=== PATIENT | female | born 1985 | race Caucasian/White ===

== ENCOUNTER → 2017-08-05 | Outpatient (CLI) | payer BC ==
[~2017-08-05] MED LIST: BCP PO; HMLI SC; INSDGI SC
[2017-08-05 12:25] LABS: ALBUMIN 3.4 gm/dl (3.4-5.0); ALT/SGPT 26 U/L (12-78); AST/SGOT 14 U/L (15-37); BLOOD UREA NITROGEN 12 mg/dl (7-18); CALCIUM 8.5 mg/dl (8.5-10.1); CARBON DIOXIDE 23 mmol/L (21-32); CREATININE 0.92 mg/dl (0.60-1.20); GLUCOSE 305 mg/dl (70-99); SODIUM 134 mmol/L (136-145)
[2017-08-05 12:27] LABS: CHOLESTEROL 123 mg/dl (0-200); TOTAL PROTEIN 7.3 gm/dl (6.4-8.2)
[2017-08-05 12:33] LABS: HEMOGLOBIN A1C 8.3 % (4.5-5.6)
[2017-08-05 12:36] LABS: ALKALINE PHOSPHATASE 76 U/L (45-117); LDL CHOLESTEROL CALCULATED 45 mg/dl
[2017-08-05 14:33] LABS: CREATININE RANDOM URINE 32.9 mg/dl
== END | disposition home or self-care (01) ==
LOC: C.LAB1850 10:45
PROVIDERS: ATTEND Internal Medicine Endocrinology, Diabetes & Metabolism
DX: E78.5 Hyperlipidemia, unspecified (principal); E55.9 Vitamin D deficiency, unspecified; E10.9 Type 1 diabetes mellitus without complications

== ENCOUNTER 2023-12-19 21:34 | Inpatient (IN) ==
[2023-12-19 22:15] LABS: Basophils # (auto) 0.06 K/uL (0.00-0.20); Basophils % (auto) 0.3 %; Eosinophils # (auto) 0.05 K/uL (0.00-0.50); Eosinophils % (auto) 0.3 %; Hemoglobin 10.7 g/dl (12.0-16.0); Immature Granulocytes # (auto) 0.27 K/uL (0.01-0.20); Immature Granulocytes % (auto) 1.6 %; Lymphocytes # (auto) 1.31 K/uL (1.20-3.40); Lymphocytes % (auto) 7.6 %; Mean Corpuscular Hgb Conc 32.4 g/dL (32.0-36.0); Mean Corpuscular Volume 83.3 fL (80.0-100.0); Monocytes # (auto) 1.21 K/uL (0.11-0.59); Neutrophils # (auto) 14.44 K/uL (1.40-6.50); Neutrophils % (auto) 83.2 %; Platelet Count 236 K/uL (130-400); RDW Coefficient of Variation 14.9 % (11.5-14.5); Red Blood Count 3.96 M/uL (4.20-5.40); White Blood Count 17.34 K/ul (4.8-10.8)
[2023-12-19 22:32] LABS: Albumin Globulin Ratio 0.8 (0.9-2); Calcium 8.6 mg/dl (8.6-10.3); Creatinine Clr Calc Pharmacy 119.2 ml/min; Est GFR (African American) 113.5 ml/min; Est GFR (Non-African American) 97.9 ml/min; Globulin 3.6 gm/dl (2.5-4.0); Potassium 3.2 mmol/L (3.5-5.1); Total Protein 6.6 gm/dl (6.0-8.3)
[2023-12-19 23:37] LABS: Adenovirus PCR Not Detected (NotDetected); Bordetella parapertussis PCR Not Detected (NotDetected); Bordetella pertussis PCR Not Detected (NotDetected); Chlamydia pneumoniae PCR Not Detected (NotDetected); Coronavirus 229E PCR Not Detected (NotDetected); Coronavirus CoV-2 (COVID19)PCR Not Detected (NotDetected); Coronavirus HKU1 PCR Not Detected (NotDetected); Coronavirus NL63 PCR Not Detected (NotDetected); Coronavirus OC43PCR Not Detected (NotDetected); Human Metapneumovirus PCR Not Detected (NotDetected); Influenza A PCR Not Detected (NotDetected); Influenza B PCR Not Detected (NotDetected); Mycoplasma pneumoniae PCR Not Detected (NotDetected); Parainfluenza Virus 1 PCR Not Detected (NotDetected); Parainfluenza Virus 2 PCR Not Detected (NotDetected); Parainfluenza Virus 3 PCR Not Detected (NotDetected); Parainfluenza Virus 4 PCR Not Detected (NotDetected); Respiratory Syncytial VirusPCR Not Detected (NotDetected); Rhinovirus/Enterovirus PCR Not Detected (NotDetected)
[2023-12-20] MEDS: ONDANSETRON 4 MG OD TAB PO STA (00:30)
[2023-12-20] MEDS: SODIUM CHLORIDE 0.9% 1,000 ML IV ONE (00:30)
[2023-12-20] MEDS: AMOXICILLIN/CLAVULANATE 875 MG TAB PO ONE (00:44)
[2023-12-20 01:04] LABS: Pregnancy Test, Urine Negative (Negative)
[2023-12-20 01:07] LABS: Appearance Urine Turbid (Clear); Bacteria Urine Automated 4+ (None Seen); Bilirubin Urine 1+ (Negative); Blood Urine 3+ (Negative); Color Urine Dark Yellow; Glucose Urine UA 2+ (Negative); Ketones Urine Trace (Negative); Leukocyte Esterase Urine 2+ (Negative); Nitrite Urine Positive (Negative); Protein Urine 2+ (Negative); RBC Urine Automated >20 /hpf (0-2); Specific Gravity Urine 1.017 (1.000-1.030); Urobilinogen Urine Positive (Negative); WBC Urine Automated >50 /hpf (0-5)
--- NOTE | 2023-12-20 02:53 | Emergency Department Note ---
ED Provider Note History of Present Illness Chief Complaint: Flu Like Symptoms Stated Complaint: FEVER, SOB, COUGH, CHILLS/SHAKES, HEADACHE Time Seen by Provider: 12/19/23 22:48 38-year-old female who presents the emergency department with complaint of fever, shortness of breath, nonproductive cough, chills and headache. The patient reports that she has been sick with upper respiratory symptoms for the past 3 days. The patient reports that she also was treated a month ago for pyelonephritis. She reports completing all of her previous antibiotics, with increasing urinary symptoms as well. Upon further questioning, the patient reports that she has not felt well now for over a week. She was seen at the [facility] in [place] when her symptoms developed, and was told that she did not have a urinary tract infection. The patient reports nausea and vomiting. The patient rates her overall discomfort a 3 out of 10. Home Medications Medication Instructions Recorded Confirmed Type ascorbic acid (vitamin C) 500 mg 500 mg PO DAILY 01/31/19 12/19/23 History tablet blood sugar diagnostic (ReliOn #10 ea 01/31/19 08/24/23 History Prime Test Strips) cyanocobalamin (vitamin B-12) 500 500 mcg PO DAILY 11/26/20 12/19/23 History mcg tablet pen needle, diabetic 31 gauge x #400 ea 11/26/20 08/24/23 Rx 3/16" (BD Ultra-Fine Mini Pen Needle) atorvastatin 40 mg tablet 40 mg PO HS #30 tabs 08/29/23 12/19/23 Rx insulin glargine 100 unit/mL (3 40 unit (0.4 mL) subcut QPM #36 mL 09/07/23 12/19/23 Rx mL) subcutaneous pen (Lantus Solostar U-100 Insulin) blood-glucose sensor (Dexcom G6 #3 ea 09/16/23 09/16/23 Rx Sensor device) blood-glucose transmitter (Dexcom #1 ea 09/16/23 09/16/23 Rx G6 Transmitter device) insulin pump cart,automated,BT #15 ea 09/16/23 09/16/23 Rx (Omnipod 5 G6 Pods (Gen 5) subcutaneous cartridge) insulin pump cartridge,automated #1 ea 09/16/23 09/16/23 Rx dose,BT with controller subcutaneous (Omnipod 5 G6 Intro Kit (Gen 5) subcutaneous cartridge with controller) insulin lispro 100 unit/mL 0 - 50 unit subcut TID 11/17/23 12/19/23 History subcutaneous pen (Humalog KwikPen (U-100) Insulin) cholecalciferol (vitamin D3) 125 125 mcg PO DAILY 12/19/23 12/19/23 History mcg (5,000 unit) tablet (Vitamin D3) amoxicillin 875 mg-potassium 1 tab PO BID #14 tabs 12/20/23 Rx clavulanate 125 mg tablet azithromycin 250 mg tablet See Rx Instructions PO .COMPLEX #6 12/20/23 Rx (Zithromax Z-Enzo) tabs Allergies Allergy/AdvReac Type Severity Reaction Status Date / Time No Known Allergies Allergy Verified 12/19/23 23:04 Past Med/Surg History Problem List (Updated 12/20/23 @ 02:53 by Scout Doll) Pyelonephritis (Acute) Acute hypokalemia (Acute) Elevated LFTs (Acute) Acute hyponatremia (Acute) Nonproductive cough (Acute) Fever (Acute) Elevated white blood cell count (Acute) Pneumonia (Acute) Diabetes type 1, uncontrolled (Chronic) Background diabetic retinopathy associated with type 1 diabetes mellitus (Acute) Diabetes type 1, controlled Medical History (Updated 12/20/23 @ 02:53 by Scout Doll) Pyelonephritis Type 1 diabetes mellitus Dyslipidemia Vitamin D deficiency Surgical History (Updated 12/20/23 @ 02:43 by Scout Doll) No significant past surgical history Social History Smoking Status: Current every day smoker Tobacco Type: Cigarettes and E-cigarettes / Vaping Preferred Language: Bulgarian marital status: Current Living Situation: Family current occupation: [employer] Officer How many Children do You have: 2 Feels Safe at Home: Yes Physical Exam Vital Signs Vital Signs - 24 hr 12/19/23 21:37 12/20/23 00:50 Temperature 37.3 C Temperature Source Oral Pulse Rate 113 H Pulse Rate [Apical] 100 H Pulse Rhythm [Apical] Regular Pulse Strength [Apical] Normal Respiratory Rate 20 16 Respiratory Effort / Characteristics Non-Labored Non-Labored Spontaneous Respiratory Depth Normal Normal Respiratory Pattern Regular Regular Blood Pressure 172/88 H Blood Pressure [Right Arm] 123/70 Blood Pressure Mean 116 Blood Pressure Mean [Right Arm] 87 Blood Pressure Position [Right Arm] Lying Pulse Oximetry 92 92 Oxygen Delivery Method Room Air Room Air Sepsis Recent Fever Within 48 Hours Yes Sepsis New/Unexplained Change in Mental Status N/A Sepsis Action Taken by Nursing No Action Required CONSTITUTIONAL: Healthy and well nourished. Patient does not appear toxic, but does appear in notable discomfort. She is diaphoretic. HEENT: No scleral icterus or conjunctival injection. Examination of oropharynx shows dry mucosa. She has mild posterior pharyngeal erythema without tonsillar hypertrophy, exudates or trismus. NECK: Full active range of motion without discomfort. No JVD or carotid bruits. No nuchal rigidity. LYMPHATICS: No cervical chain adenopathy. RESPIRATORY: Clear to auscultation bilaterally with no wheezing, crackles, rhonchi or stridor. CARDIOVASCULAR: Regular rate and rhythm with no murmurs, rubs or gallops. GASTROINTESTINAL: Bowel sounds present in all quadrants. Patient has mild generalized abdominal tenderness to palpation. Positive CVA tenderness. Negative McBurney's point tenderness, right few side, Rovsing sign and heeltap. MUSCULOSKELETAL: Full range of motion of all joints without discomfort. INTEGUMENTARY: No rash or other significant dermatologic conditions noted. HEMATOLOGIC: No ecchymosis or petechiae. PSYCHIATRIC: Positive affect. NEUROLOGIC: No focal neurologic deficits noted. Course Course Patient history and physical exam were performed. Nurses notes were reviewed. Vital signs were reviewed from triage showing a mild tachycardia and elevated blood pressure. The patient was not febrile in triage. Of note, the patient did arrive to the emergency department during time of high volume, acuity and prolonged emergency department waiting times. Critical pathway orders were initiated from triage. IV access was established, and labs were drawn. At the time that I evaluated the patient, additional orders were placed for IV hydration, chest x-ray, ECG and urine studies. Review of her labs shows a moderate leukocytosis with a white count of over 17,000, neutrophilic shift and 27% bandemia. CMP shows a mild hyponatremia, hypokalemia and elevated random glucose. Creatinine was normal. AST was also elevated at 50, as well as alkaline phosphatase at 201. Total bilirubin was normal. The patient was unable to provide a urine specimen. A 2 view chest x-ray was ordered, showing evidence for pneumonia. The patient was initially administered Augmentin. The patient was eventually able to provide a urine specimen, with a quick urine dip that did not show evidence for infection. I was initially planning to discharge the patient until urinalysis results came back, showing recurrent infection. I did review prior medical records, showing that the patient was in the emergency department on 11/17/2023 with a diagnosis of pyelonephritis. Urine cultures at that time showed macedo sensitivity, and was discharged on cefdinir antibiotics. The case was further discussed with , ED attending physician, who recommended consulting the hospitalist service, and administering IV Rocephin and Zithromax. The patient was advised of her findings, and has agreed to admission. The case was then discussed with the [facility] hospitalist service (Dr. Coburn). Please see hospitalist dictations for further treatment and final disposition. Administered Medications Discontinued Medications Amoxicillin/Clavulanate Potassium (Amoxicillin/Clavulanate 875 Mg Tab) 1 tab PO NOW ONE; Protocol Stop: 12/20/23 00:28 Last Admin: 12/20/23 00:44 Dose: 1 tab Documented By: INDY Sodium Chloride (Nss) 1,000 mls @ 999 mls/hr IV .Q1H1M ONE Stop: 12/20/23 01:22 Last Infusion: 12/20/23 01:40 Dose: Infused Documented By: Admin: 12/20/23 00:30 Dose: 999 mls/hr Documented By: INDY Ceftriaxone Sodium (Rocephin) 2,000 mg in 50 mls @ 100 mls/hr IV NOW STA Stop: 12/20/23 02:32 Last Admin: 12/20/23 03:08 Dose: Not Given Documented By: DOMI Ioversol (Optiray 320 125ml) 125 ml IV ONCE ONE Stop: 12/20/23 03:01 Last Admin: 12/20/23 03:01 Dose: 118 ml Documented By: KARNE Ondansetron HCl (Ondansetron 4 Mg Od Tab) 4 mg PO NOW STA Stop: 12/20/23 00:27 Last Admin: 12/20/23 00:30 Dose: 4 mg Documented By: INDY Medical Decision Making Medical Records Attestation: I reviewed the patient's medical records. Home Medications was personally reviewed by me Laboratory Data Attestation: I reviewed the patient's lab results. 12/19/23 21:55 07/29/24 21:55 Lab Results 12/19/23 12/19/23 12/20/23 Range/Units 21:52 21:55 00:38 WBC 17.34 H (4.8-10.8) K/ul RBC 3.96 L (4.20-5.40) M/uL Hgb 10.7 L (12.0-16.0) g/dl Hct 33.0 L (37.0-47.0) % MCV 83.3 (80.0-100.0) fL MCH 27.0 (25.0-34.0) pg MCHC 32.4 (32.0-36.0) g/dL RDW Std Deviation 45.0 (36.4-46.3) fL RDW Coeff of Andi 14.9 H (11.5-14.5) % Plt Count 236 (130-400) K/uL MPV 11.0 (9.4-12.4) fL Immature Gran % (Auto) 1.6 % Neut % (Auto) 83.2 % Lymph % (Auto) 7.6 % [place] % (Auto) 7.0 % Eos % (Auto) 0.3 % Baso % (Auto) 0.3 % Neut # (Auto) 14.44 H (1.40-6.50) K/uL Lymph # (Auto) 1.31 (1.20-3.40) K/uL [place] # (Auto) 1.21 H (0.11-0.59) K/uL Eos # (Auto) 0.05 (0.00-0.50) K/uL Baso # (Auto) 0.06 (0.00-0.20) K/uL Immature Gran # (Auto) 0.27 H (0.01-0.20) K/uL Sodium 131 L (136-145) mmol/L Potassium 3.2 L (3.5-5.1) mmol/L Chloride 93 L (98-107) mmol/L Carbon Dioxide 29 (21-32) mmol/L Anion Gap 9 (3-11) BUN 10 (6-23) mg/dl Creatinine 0.77 (0.6-1.2) mg/dl Est Cr Clr Drug Dosing 119.2 ml/min Est GFR ( Amer) 113.5 ml/min Est GFR (Non-Af Amer) 97.9 ml/min BUN/Creatinine Ratio 13.0 (10-20) Glucose 242 H (70-99(Fasting)) mg/dl POC Glucose (70-99) mg/dl Calcium 8.6 (8.6-10.3) mg/dl Magnesium 1.8 (1.7-2.4) mg/dl Total Bilirubin 1.0 (0.2-1.0) mg/dl AST 50 H (13-39) U/L ALT 39 (7-52) U/L Alkaline Phosphatase 201 H (34-104) U/L Total Protein 6.6 (6.0-8.3) gm/dl Albumin 3.0 L (3.4-5.0) gm/dl Globulin 3.6 (2.5-4.0) gm/dl Albumin/Globulin Ratio 0.8 L (0.9-2) Urine Color Dark Yellow Urine Appearance Turbid A (Clear) Urine pH 6.0 (4.5-7.5) Ur Specific [place] 1.017 (1.000-1.030) Urine Protein 2+ H (Negative) Urine Glucose (UA) 2+ H (Negative) Urine Ketones Trace H (Negative) Urine Blood 3+ H (Negative) Urine Nitrite Positive A (Negative) Urine Bilirubin 1+ H (Negative) Urine Urobilinogen Positive H (Negative) Ur Leukocyte Esterase 2+ H (Negative) Urine WBC (Auto) >50 H (0-5) /hpf Urine RBC (Auto) >20 H (0-2) /hpf U Hyaline Cast (Auto) 3-5 H (0-2) /lpf U Epithel Cells (Auto) 6-10 H (0-2) /hpf Urine Bacteria (Auto) 4+ H (None Seen) Urine Test Negative (Negative) POC Ur Test (NEG) Adenovirus (PCR) Not Detected (NotDetected) B. pertussis DNA (PCR) Not Detected (NotDetected) B.parapertussis DNA PCR Not Detected (NotDetected) C. pneumoniae DNA (PCR) Not Detected (NotDetected) Coronavirus OC43 (PCR) Not Detected (NotDetected) Coronavirus HKU1 (PCR) Not Detected (NotDetected) Coronavirus 229E (PCR) Not Detected (NotDetected) SARS-CoV-2 (PCR) Not Detected (NotDetected) Coronavirus NL63 (PCR) Not Detected (NotDetected) Monoscreen Negative (Negative) Human Metapneumovir PCR Not Detected (NotDetected) Influenza Type A (PCR) Not Detected (NotDetected) Influenza Type B (PCR) Not Detected (NotDetected) M. pneumoniae (PCR) Not Detected (NotDetected) Parainfluenza 1 (PCR) Not Detected (NotDetected) Parainfluenza 2 (PCR) Not Detected (NotDetected) Parainfluenza 3 (PCR) Not Detected (NotDetected) Parainfluenza 4 (PCR) Not Detected (NotDetected) RSV (PCR) Not Detected (NotDetected) Entero/Rhino (PCR) Not Detected (NotDetected) 12/20/23 12/20/23 Range/Units 00:40 02:48 WBC (4.8-10.8) K/ul RBC (4.20-5.40) M/uL Hgb (12.0-16.0) g/dl Hct (37.0-47.0) % MCV (80.0-100.0) fL MCH (25.0-34.0) pg MCHC (32.0-36.0) g/dL RDW Std Deviation (36.4-46.3) fL RDW Coeff of Andi (11.5-14.5) % Plt Count (130-400) K/uL MPV (9.4-12.4) fL Immature Gran % (Auto) % Neut % (Auto) % Lymph % (Auto) % [place] % (Auto) % Eos % (Auto) % Baso % (Auto) % Neut # (Auto) (1.40-6.50) K/uL Lymph # (Auto) (1.20-3.40) K/uL [place] # (Auto) (0.11-0.59) K/uL Eos # (Auto) (0.00-0.50) K/uL Baso # (Auto) (0.00-0.20) K/uL Immature Gran # (Auto) (0.01-0.20) K/uL Sodium (136-145) mmol/L Potassium (3.5-5.1) mmol/L Chloride (98-107) mmol/L Carbon Dioxide (21-32) mmol/L Anion Gap (3-11) BUN (6-23) mg/dl Creatinine (0.6-1.2) mg/dl Est Cr Clr Drug Dosing ml/min Est GFR ( Amer) ml/min Est GFR (Non-Af Amer) ml/min BUN/Creatinine Ratio (10-20) Glucose (70-99(Fasting)) mg/dl POC Glucose 249 H (70-99) mg/dl Calcium (8.6-10.3) mg/dl Magnesium (1.7-2.4) mg/dl Total Bilirubin (0.2-1.0) mg/dl AST (13-39) U/L ALT (7-52) U/L Alkaline Phosphatase (34-104) U/L Total Protein (6.0-8.3) gm/dl Albumin (3.4-5.0) gm/dl Globulin (2.5-4.0) gm/dl Albumin/Globulin Ratio (0.9-2) Urine Color Urine Appearance (Clear) Urine pH (4.5-7.5) Ur Specific [place] (1.000-1.030) Urine Protein (Negative) Urine Glucose (UA) (Negative) Urine Ketones (Negative) Urine Blood (Negative) Urine Nitrite (Negative) Urine Bilirubin (Negative) Urine Urobilinogen (Negative) Ur Leukocyte Esterase (Negative) Urine WBC (Auto) (0-5) /hpf Urine RBC (Auto) (0-2) /hpf U Hyaline Cast (Auto) (0-2) /lpf U Epithel Cells (Auto) (0-2) /hpf Urine Bacteria (Auto) (None Seen) Urine Test (Negative) POC Ur Test NEG (NEG) Adenovirus (PCR) (NotDetected) B. pertussis DNA (PCR) (NotDetected) B.parapertussis DNA PCR (NotDetected) C. pneumoniae DNA (PCR) (NotDetected) Coronavirus OC43 (PCR) (NotDetected) Coronavirus HKU1 (PCR) (NotDetected) Coronavirus 229E (PCR) (NotDetected) SARS-CoV-2 (PCR) (NotDetected) Coronavirus NL63 (PCR) (NotDetected) Monoscreen (Negative) Human Metapneumovir PCR (NotDetected) Influenza Type A (PCR) (NotDetected) Influenza Type B (PCR) (NotDetected) M. pneumoniae (PCR) (NotDetected) Parainfluenza 1 (PCR) (NotDetected) Parainfluenza 2 (PCR) (NotDetected) Parainfluenza 3 (PCR) (NotDetected) Parainfluenza 4 (PCR) (NotDetected) RSV (PCR) (NotDetected) Entero/Rhino (PCR) (NotDetected) Imaging Data Attestation: I personally reviewed and interpreted this imaging study as follows: My Impression: My interpretation of the two-view chest x-ray shows evidence for pneumonia without evidence for pneumothorax or cardiomegaly. Radiologist report is pending. ECG Data Attestation: I personally reviewed and interpreted this ECG as follows: Indication: + abdominal pain, + nausea and + vomiting Rate (beats per minute): 107 Rhythm: + sinus tachycardia ECG Intervals/blocks: + Normal QRS, + Normal QT and + Normal RI ECG [place]: + Normal ECG ST segments: + Normal ST segments Comparison ECG Date: from (09/09/09) Change: no significant change MDM Narrative See ED Course section for further details of today's visit. The patient presents with symptoms consistent with upper respiratory infection. The patient also reports fever and chills with urinary symptoms. It is noted that the patient was seen in the emergency department a month ago for pyelonephritis, and appears to have responded well to oral cefdinir antibiotics. The patient reports that symptoms have now returned. A Bio[employer] test did not show any upper respiratory viruses on exam, however chest x-ray shows evidence for pneumonia. Urinalysis today also shows an infection, with concerns for pyelonephritis on exam. It is noted that the patient is currently afebrile, not hypoxic or significantly tachycardic to suggest sepsis. The patient is not hypoxic, but does have an O2 saturation in the low 90s in triage. At this point, I do feel that the patient warrants admission for her multiple infections. The case was discussed with the [facility] hospitalist, who will further evaluate the patient for further treatment. Impression Pneumonia, Elevated white blood cell count, Fever, Nonproductive cough, Acute hyponatremia, Elevated LFTs, Acute hypokalemia, Pyelonephritis Discharge Plan Visit Data Chief Complaint: Flu Like Symptoms Stated Complaint: FEVER, SOB, COUGH, CHILLS/SHAKES, HEADACHE ED Provider: Erasmo Patel ED Midlevel Provider: Scout Doll Discharge Problem: Pneumonia, Elevated white blood cell count, Fever, Nonproductive cough, Acute hyponatremia, Elevated LFTs, Acute hypokalemia, Pyelonephritis Patient Disposition: Home - Self-Care Discharge Instructions Activity Restrictions/Additional Instructions: Complete all Augmentin and azithromycin antibiotics as prescribed. Rest and remain well-hydrated. Alternate ibuprofen 600 mg and Tylenol 1000 mg for most effective pain relief: Ibuprofen --4 HRS--> Tylenol --4 HRS--> ibuprofen --4 HRS--> Tylenol .... Follow-up with your family doctor for reevaluation in 2 to 3 days. Return to the emergency department for any progressively worsening symptoms. Forms Stand Alone Forms: [facility], Important Visit Information Prescriptions Prescriptions: New azithromycin [Zithromax Z-Enzo] 250 mg tablet See Rx Instructions .ROUTE .COMPLEX Qty: 6 0RF Rx Instructions: take 500 mg today (day 1), then 250 mg for 4 days (days 2-5) amoxicillin-pot clavulanate 875-125 mg tablet 1 tab PO BID Qty: 14 0RF No Action atorvastatin 40 mg tablet 40 mg PO HS Qty: 30 5RF insulin glargine [Lantus Solostar U-100 Insulin] 100 unit/mL (3 mL) insulin pen 40 unit subcut QPM Qty: 36 2RF (DME) pen needle, diabetic [BD Ultra-Fine Mini Pen Needle] 31 gauge x 3/16" needle See Rx Instructions .ROUTE .MEDSUPPLY Qty: 400 3RF Rx Instructions: Inject insulin four times daily (DME) ReliOn Prime Test Strips strip See Dose Instructions .ROUTE .MEDSUPPLY Qty: 10 Rx Instructions: Test blood sugars 3 time a day ascorbic acid (vitamin C) 500 mg tablet 500 mg PO DAILY Rx Instructions: PER PT "NOT REGULARLY" cyanocobalamin (vitamin B-12) 500 mcg tablet 500 mcg PO DAILY Rx Instructions: PER PT "NOT REGULARLY" (DME) Dexcom G6 Sensor Device See Rx Instructions .ROUTE .MEDSUPPLY Qty: 3 11RF Rx Instructions: As directed (DME) Dexcom G6 Transmitter Device See Rx Instructions .ROUTE .MEDSUPPLY Qty: 1 3RF Rx Instructions: As directed (DME) Omnipod 5 G6 Intro Kit (Gen 5) Cartridge See Rx Instructions .Route Qty: 1 0RF Rx Instructions: As directed (DME) Omnipod 5 G6 Pods (Gen 5) Cartridge See Rx Instructions .Route Qty: 15 11RF Rx Instructions: As directed to change pods every 2 days insulin lispro [Humalog KwikPen Insulin] 100 unit/mL insulin pen 0 - 50 unit SQ TID cholecalciferol (vitamin D3) [Vitamin D3] 125 mcg (5,000 unit) Tablet 125 mcg PO DAILY Referrals Referrals: Ignacio Nielsen MD [Primary Care Provider] -
[2023-12-20 02:58] LABS: Magnesium 1.8 mg/dl (1.7-2.4)
[2023-12-20] MEDS: OPTIRAY 320 125ml IV ONE (03:01)
--- NOTE | 2023-12-20 03:03 | History & Physical Report ---
Date of Service December 20, 2023 Assessment & Plan (1) Sepsis due to pneumonia: (2) Sepsis due to urinary tract infection: (3) Pyelonephritis: (4) Acute hypokalemia: (5) Diabetes type 1, uncontrolled: (6) Hyperglycemia due to type 1 diabetes mellitus: Plan Sepsis due to combination of multi lobar pneumonia and pyelonephritis- Admit to the PCU Placed on vancomycin IV per pharmacokinetic monitoring Zosyn 4.5 g IV every 8 hours and azithromycin mg IV daily Patient's blood pressure is borderline low Status post 1 L normal saline in the ED Placed on NSS + KCl 20 mill equivalents at 125 mL/h x 2 L Potassium 3.2 on admission, addressed with IV fluids as above Magnesium level added, returns 1.8, will give magnesium sulfate 1 g IV Multi lobar pneumonia- Antibiotics as above CT angio PE protocol was performed due to concerns regarding possible PE on travel from [place] There was concern regarding possible aspiration on CT, however, unclear why this would be so Pyelonephritis- Follow urine culture and sensitivity Antibiotics as noted above IV fluids as noted above Diabetes mellitus- Type I has had variable control Glucose 242 on admission Med rec suggest that she was on insulin pump, however, she is not Consult pharmacy for diabetic management Follow serial CBC with differential, chemistry profile, magnesium level , and 11 AM today History of Present Illness Chief Complaint: The patient reports that she was treated for a pyelonephritis on 11/17/2023, completing a course of antibiotics and reported she was feeling somewhat improved. She went to [place] 2 weeks ago, and returned 10 days ago, reporting that when she got home she felt very tired. 8 days ago she went to acute care, and reports that she was told she had no kidney infection there, and was advised to come to [facility] for further assessment. She presents to the emergency department today with complaint of 2 to 3 days of worsening shortness of breath and cough with mucus. She is having more urinary symptoms at this time as well. She had decreased oral intake to both liquids and solids due to decreased appetite and fatigue. Primary Care Provider: Ignacio Nielsen MD The patient is a 38-year-old female with a past medical history including diabetes mellitus type 1 with variable control, background diabetic retinopathy, hyperlipidemia, B12 deficiency, and obesity. She presents to the emergency department with symptoms as noted above. She reports that she is exhausted, having difficulty breathing, is experiencing urinary frequency, urgency and dysuria, and in general feels terrible. Allergies Allergy/AdvReac Type Severity Reaction Status Date / Time No Known Allergies Allergy Verified 12/19/23 23:04 Home Medications Medication Instructions Recorded Confirmed Type ascorbic acid (vitamin C) 500 mg 500 mg PO DAILY 01/31/19 12/19/23 History tablet blood sugar diagnostic (ReliOn #10 ea 01/31/19 08/24/23 History Prime Test Strips) cyanocobalamin (vitamin B-12) 500 500 mcg PO DAILY 11/26/20 12/19/23 History mcg tablet pen needle, diabetic 31 gauge x #400 ea 11/26/20 08/24/23 Rx 3/16" (BD Ultra-Fine Mini Pen Needle) atorvastatin 40 mg tablet 40 mg PO HS #30 tabs 08/29/23 12/19/23 Rx insulin glargine 100 unit/mL (3 40 unit (0.4 mL) subcut QPM #36 mL 09/07/23 12/19/23 Rx mL) subcutaneous pen (Lantus Solostar U-100 Insulin) blood-glucose sensor (Dexcom G6 #3 ea 09/16/23 09/16/23 Rx Sensor device) blood-glucose transmitter (Dexcom #1 ea 09/16/23 09/16/23 Rx G6 Transmitter device) insulin pump cart,automated,BT #15 ea 09/16/23 09/16/23 Rx (Omnipod 5 G6 Pods (Gen 5) subcutaneous cartridge) insulin pump cartridge,automated #1 ea 09/16/23 09/16/23 Rx dose,BT with controller subcutaneous (Omnipod 5 G6 Intro Kit (Gen 5) subcutaneous cartridge with controller) insulin lispro 100 unit/mL 0 - 50 unit subcut TID 11/17/23 12/19/23 History subcutaneous pen (Humalog KwikPen (U-100) Insulin) cholecalciferol (vitamin D3) 125 125 mcg PO DAILY 12/19/23 12/19/23 History mcg (5,000 unit) tablet (Vitamin D3) amoxicillin 875 mg-potassium 1 tab PO BID #14 tabs 12/20/23 Rx clavulanate 125 mg tablet azithromycin 250 mg tablet See Rx Instructions PO .COMPLEX #6 12/20/23 Rx (Zithromax Z-Enzo) tabs Past Med/Surg History Problem List (Updated 12/20/23 @ 06:51 by Hansel Coburn MD) Hyperglycemia due to type 1 diabetes mellitus Sepsis due to urinary tract infection Sepsis due to pneumonia Pyelonephritis (Acute) Acute hypokalemia (Acute) Elevated LFTs (Acute) Acute hyponatremia (Acute) Nonproductive cough (Acute) Fever (Acute) Elevated white blood cell count (Acute) Pneumonia (Acute) Diabetes type 1, uncontrolled (Chronic) Background diabetic retinopathy associated with type 1 diabetes mellitus (Acute) Diabetes type 1, controlled Medical History (Updated 12/20/23 @ 06:51 by Hansel Coburn MD) Pyelonephritis Type 1 diabetes mellitus Dyslipidemia Vitamin D deficiency Surgical History (Updated 12/20/23 @ 02:43 by Scout Doll) No significant past surgical history Social History Smoking Status: Current every day smoker Tobacco Type: Cigarettes and E-cigarettes / Vaping Hx Alcohol Use: No Hx Substance Use: No Preferred Language: Yi Communication Ability: Effective Utilities Service Investigator Required: No Beliefs That Will Affect Care: None marital status: Current Living Situation: Spouse and Family current occupation: Alignment Specialist How many Children do You have: 2 Feels Safe at Home: Yes Safety Concerns: Feels Safe At This Time Assistive Devices: None Review of Systems Review of Systems: The patient denies chest pain, palpitations, lower extremity swelling, sore throat, fevers, chills, sweats, nausea, vomiting, diarrhea , constipation, abdominal pain, pelvic pain, blood in urine or stool, lightheadedness, dizziness, headache, memory loss, loss of consciousness, rash, abnormal bruising or bleeding, focal weakness, numbness or tingling in arms or legs, back or neck pain, or night sweats. The review of systems is otherwise negative other than for that already noted above, and at least 10 systems have been reviewed. Physical Exam Physical Exam: The patient is awake, but lethargic, well developed and well nourished, normocephalic and atraumatic, lying in bed and in no acute distress. HEENT--PERRL, EOMI, mucous membranes and oropharynx mildly dry. Neck--supple. No JVD. No bruits. Thyroid normal, trachea midline, no adenopathy. Heart--normal S1 and S2. No murmurs, rubs or gallops. Lungs--clear bilaterally, no respiratory distress, no accessory muscle use. Abdomen--normal bowel sounds and soft. Nontender. Nondistended, no hernias or masses, no organomegaly. Extremities-- No edema. Dermatologic--normal skin turgor, normal color, no abnormal lymph nodes, no rash. Neurologic--cranial nerves II through XII grossly intact. Rheumatologic--normal range of motion. Psychiatric--normal affect. Results & Data Results & Data Vital Signs (Past 12 Hours) Vital Signs Temp Pulse Pulse Resp BP BP Pulse Ox 12/20/23 00:50 100 H 16 123/70 92 12/19/23 21:37 37.3 C 113 H 20 172/88 H 92 O2 Del Method 12/20/23 00:50 Room Air 12/19/23 21:37 Room Air Laboratory Results Laboratory Results WBC 17.34 K/ul (4.8-10.8) H 12/19/23 21:55 RBC 3.96 M/uL (4.20-5.40) L 12/19/23 21:55 Hgb 10.7 g/dl (12.0-16.0) L 12/19/23 21:55 Hct 33.0 % (37.0-47.0) L 12/19/23 21:55 MCV 83.3 fL (80.0-100.0) 12/19/23 21:55 MCH 27.0 pg (25.0-34.0) 12/19/23 21:55 MCHC 32.4 g/dL (32.0-36.0) 12/19/23 21:55 RDW Std Deviation 45.0 fL (36.4-46.3) 12/19/23 21:55 RDW Coeff of Andi 14.9 % (11.5-14.5) H 12/19/23 21:55 Plt Count 236 K/uL (130-400) 12/19/23 21:55 MPV 11.0 fL (9.4-12.4) 12/19/23 21:55 Immature Gran % (Auto) 1.6 % 12/19/23 21:55 Neut % (Auto) 83.2 % 12/19/23 21:55 Lymph % (Auto) 7.6 % 12/19/23 21:55 [place] % (Auto) 7.0 % 12/19/23 21:55 Eos % (Auto) 0.3 % 12/19/23 21:55 Baso % (Auto) 0.3 % 12/19/23 21:55 Neut # (Auto) 14.44 K/uL (1.40-6.50) H 12/19/23 21:55 Lymph # (Auto) 1.31 K/uL (1.20-3.40) 12/19/23 21:55 [place] # (Auto) 1.21 K/uL (0.11-0.59) H 12/19/23 21:55 Eos # (Auto) 0.05 K/uL (0.00-0.50) 12/19/23 21:55 Baso # (Auto) 0.06 K/uL (0.00-0.20) 12/19/23 21:55 Immature Gran # (Auto) 0.27 K/uL (0.01-0.20) H 12/19/23 21:55 Sodium 131 mmol/L (136-145) L 12/19/23 21:55 Potassium 3.2 mmol/L (3.5-5.1) L 12/19/23 21:55 Chloride 93 mmol/L (98-107) L 12/19/23 21:55 Carbon Dioxide 29 mmol/L (21-32) 12/19/23 21:55 Anion Gap 9 (3-11) 12/19/23 21:55 BUN 10 mg/dl (6-23) 12/19/23 21:55 Creatinine 0.77 mg/dl (0.6-1.2) 12/19/23 21:55 Est Cr Clr Drug Dosing 119.2 ml/min 12/19/23 21:55 Est GFR ( Amer) 113.5 ml/min 12/19/23 21:55 Est GFR (Non-Af Amer) 97.9 ml/min 12/19/23 21:55 BUN/Creatinine Ratio 13.0 (10-20) 12/19/23 21:55 Glucose 242 mg/dl (70-99(Fasting)) H 12/19/23 21:55 POC Glucose 249 mg/dl (70-99) H 12/20/23 02:48 Calcium 8.6 mg/dl (8.6-10.3) 12/19/23 21:55 Magnesium 1.8 mg/dl (1.7-2.4) 12/19/23 21:55 Total Bilirubin 1.0 mg/dl (0.2-1.0) 12/19/23 21:55 AST 50 U/L (13-39) H 12/19/23 21:55 ALT 39 U/L (7-52) 12/19/23 21:55 Alkaline Phosphatase 201 U/L (34-104) H 12/19/23 21:55 Total Protein 6.6 gm/dl (6.0-8.3) 12/19/23 21:55 Albumin 3.0 gm/dl (3.4-5.0) L 12/19/23 21:55 Globulin 3.6 gm/dl (2.5-4.0) 12/19/23 21:55 Albumin/Globulin Ratio 0.8 (0.9-2) L 12/19/23 21:55 Urine Color Dark Yellow 12/20/23 00:38 Urine Appearance Turbid (Clear) A 12/20/23 00:38 Urine pH 6.0 (4.5-7.5) 12/20/23 00:38 Ur Specific [place] 1.017 (1.000-1.030) 12/20/23 00:38 Urine Protein 2+ (Negative) H 12/20/23 00:38 Urine Glucose (UA) 2+ (Negative) H 12/20/23 00:38 Urine Ketones Trace (Negative) H 12/20/23 00:38 Urine Blood 3+ (Negative) H 12/20/23 00:38 Urine Nitrite Positive (Negative) A 12/20/23 00:38 Urine Bilirubin 1+ (Negative) H 12/20/23 00:38 Urine Urobilinogen Positive (Negative) H 12/20/23 00:38 Ur Leukocyte Esterase 2+ (Negative) H 12/20/23 00:38 Urine WBC (Auto) >50 /hpf (0-5) H 12/20/23 00:38 Urine RBC (Auto) >20 /hpf (0-2) H 12/20/23 00:38 U Hyaline Cast (Auto) 3-5 /lpf (0-2) H 12/20/23 00:38 U Epithel Cells (Auto) 6-10 /hpf (0-2) H 12/20/23 00:38 Urine Bacteria (Auto) 4+ (None Seen) H 12/20/23 00:38 Urine Test Negative (Negative) 12/20/23 00:38 POC Ur Test NEG (NEG) 12/20/23 00:40 Adenovirus (PCR) Not Detected (NotDetected) 12/19/23 21:52 B. pertussis DNA (PCR) Not Detected (NotDetected) 12/19/23 21:52 B.parapertussis DNA PCR Not Detected (NotDetected) 12/19/23 21:52 C. pneumoniae DNA (PCR) Not Detected (NotDetected) 12/19/23 21:52 Coronavirus OC43 (PCR) Not Detected (NotDetected) 12/19/23 21:52 Coronavirus HKU1 (PCR) Not Detected (NotDetected) 12/19/23 21:52 Coronavirus 229E (PCR) Not Detected (NotDetected) 12/19/23 21:52 SARS-CoV-2 (PCR) Not Detected (NotDetected) 12/19/23 21:52 Coronavirus NL63 (PCR) Not Detected (NotDetected) 12/19/23 21:52 Monoscreen Negative (Negative) 12/19/23 21:55 Human Metapneumovir PCR Not Detected (NotDetected) 12/19/23 21:52 Influenza Type A (PCR) Not Detected (NotDetected) 12/19/23 21:52 Influenza Type B (PCR) Not Detected (NotDetected) 12/19/23 21:52 M. pneumoniae (PCR) Not Detected (NotDetected) 12/19/23 21:52 Parainfluenza 1 (PCR) Not Detected (NotDetected) 12/19/23 21:52 Parainfluenza 2 (PCR) Not Detected (NotDetected) 12/19/23 21:52 Parainfluenza 3 (PCR) Not Detected (NotDetected) 12/19/23 21:52 Parainfluenza 4 (PCR) Not Detected (NotDetected) 12/19/23 21:52 RSV (PCR) Not Detected (NotDetected) 12/19/23 21:52 Entero/Rhino (PCR) Not Detected (NotDetected) 12/19/23 21:52 Impressions Abdomen/Pelvis CT 12/20/23 02:31 Exam(s): CT ABDOMEN + PELVIS With Contrast IV Amt: 118 MLOPTIRAY 320 EXAM: CT Abdomen and Pelvis With Intravenous Contrast CLINICAL HISTORY: Reason for exam: UTI, question of renal infarcts 11/17/23. TECHNIQUE: Axial computed tomography images of the abdomen and pelvis with intravenous contrast. CTDI is 28.14 mGy and DLP is 1471.68 mGy-cm. Automated exposure control was utilized for the study. A dose lowering technique was utilized adhering to the principles of ALARA. CONTRAST: Patient received 118 MLOPTIRAY 320 of IV contrast COMPARISON: No relevant prior studies available. FINDINGS: Lung bases: Dependent airspace consolidations, consistent with multilobar pneumonia. Small bilateral pleural effusions. ABDOMEN: Liver: Unremarkable. No mass. Gallbladder and bile ducts: Unremarkable. No calcified stones. No ductal dilation. Pancreas: Unremarkable. No mass. No ductal dilation. Spleen: Unremarkable. No splenomegaly. Adrenals: Unremarkable. No mass. Kidneys and ureters: Patchy nephrogram of the LEFT kidney, consistent with bowel nephritis. No hydronephrosis. Stomach and bowel: Unremarkable. No obstruction. No mucosal thickening. PELVIS: Appendix: No findings to suggest acute appendicitis. Bladder: Unremarkable. No mass. Reproductive: Unremarkable as visualized. ABDOMEN and PELVIS: Intraperitoneal space: Unremarkable. No free air. No significant fluid collection. Bones/joints: No acute fracture. No dislocation. Soft tissues: Unremarkable. Vasculature: Unremarkable. No abdominal aortic aneurysm. Lymph nodes: Unremarkable. No enlarged lymph nodes. IMPRESSION: 1. Dependent airspace consolidations, consistent with multilobar pneumonia. Small bilateral pleural effusions. 2. Patchy nephrogram of the LEFT kidney, consistent with bowel nephritis. Electronically signed by: Jorge Rosenbaum MD 12/20/23 04:07 AM Chest CTA 12/20/23 02:45 Exam(s): CTA CHEST IV Amt: 118 ML OPTIRAY 320 EXAM: CT Angiography Chest With Intravenous Contrast CLINICAL HISTORY: Reason for exam: PE. TECHNIQUE: Axial computed tomographic angiography images of the chest with intravenous contrast. CTDI is 28.14 mGy and DLP is 711.81 mGy-cm. Automated exposure control was utilized for the study. A dose lowering technique was utilized adhering to the principles of ALARA. MIP reconstructed images were created and reviewed. COMPARISON: No relevant prior studies available. FINDINGS: Pulmonary arteries: Unremarkable. No acute pulmonary embolism. Aorta: No acute findings. No thoracic aortic aneurysm. Lungs: Dependent airspace consolidations, concerning for bilateral aspiration pneumonia. Small bilateral parapneumonic effusions. Pleural space: Unremarkable. No significant effusion. No pneumothorax. Heart: Unremarkable. No cardiomegaly. No significant pericardial effusion. No evidence of RV dysfunction. Bones/joints: No acute fracture. No dislocation. Soft tissues: Unremarkable. Lymph nodes: Unremarkable. No enlarged lymph nodes. Intraperitoneal space: Mild abdominal ascites. IMPRESSION: 1. No acute pulmonary embolism. 2. Dependent airspace consolidations, concerning for bilateral aspiration pneumonia. Small bilateral parapneumonic effusions. 3. Mild abdominal ascites. Electronically signed by: Jorge Rosenbaum MD 12/20/23 03:41 AM Code Status & VTE Plan Code Status Full code VTE Prophylaxis Plan VTE Prophylaxis will be ordered: Yes PG Care Time/CCT Total # of Minutes Spent Total Time Spent with Patient: Total time spent is greater than 50% in coordination of care (as documented) at patient's floor/unit and/or counseling patient: Coding Level of Care Code 88303 INT INP/OBS CARE 3/75MIN Diagnoses Sepsis due to pneumonia J18.9; A41.9 Sepsis due to urinary tract infection A41.9; N39.0 Pyelonephritis N12 Acute hypokalemia E87.6 Diabetes type 1, uncontrolled E10.65 Hyperglycemia due to type 1 diabetes mellitus E10.65
[2023-12-20] MEDS: cefTRIAXone SODIUM 2,000 MG/50 ML BAG IV STA (03:08)
[2023-12-20] MEDS: NSS + 20MEQ KCL 20 MEQ/1,000 ML BAG IV SCH (03:31)
[2023-12-20] MEDS: AZITHROMYCIN 500 MG in DEXTROSE 5% 250 ML IV ONE (03:31)
--- NOTE | 2023-12-20 03:42 | CT Scan Report ---
Exam(s): CTA CHEST IV Amt: 118 ML OPTIRAY 320 EXAM: CT Angiography Chest With Intravenous Contrast CLINICAL HISTORY: Reason for exam: PE. TECHNIQUE: Axial computed tomographic angiography images of the chest with intravenous contrast. CTDI is 28.14 mGy and DLP is 711.81 mGy-cm. Automated exposure control was utilized for the study. A dose lowering technique was utilized adhering to the principles of ALARA. MIP reconstructed images were created and reviewed. COMPARISON: No relevant prior studies available. FINDINGS: Pulmonary arteries: Unremarkable. No acute pulmonary embolism. Aorta: No acute findings. No thoracic aortic aneurysm. Lungs: Dependent airspace consolidations, concerning for bilateral aspiration pneumonia. Small bilateral parapneumonic effusions. Pleural space: Unremarkable. No significant effusion. No pneumothorax. Heart: Unremarkable. No cardiomegaly. No significant pericardial effusion. No evidence of RV dysfunction. Bones/joints: No acute fracture. No dislocation. Soft tissues: Unremarkable. Lymph nodes: Unremarkable. No enlarged lymph nodes. Intraperitoneal space: Mild abdominal ascites. IMPRESSION: 1. No acute pulmonary embolism. 2. Dependent airspace consolidations, concerning for bilateral aspiration pneumonia. Small bilateral parapneumonic effusions. 3. Mild abdominal ascites. Electronically signed by: Jorge Rosenbaum MD 12/20/23 03:41 AM
[2023-12-20] MEDS ORDERED: DEXTROSE 50% 50 ML SYRINGE IV PRN (03:44)
[2023-12-20] MEDS ORDERED: GLUCOSE 10 TAB/TUBE PO PRN (03:44)
[2023-12-20] MEDS ORDERED: GLUCAGON FOR INJ 1 MG VIAL SQ PRN (03:44)
[2023-12-20] MEDS ORDERED: ONDANSETRON INJ 2 MG/ML 2 ML VIAL IV PRN (03:44)
[2023-12-20] MEDS ORDERED: GLUCOSE 40% GEL 15 GM TUBE PO PRN (03:44)
[2023-12-20] MEDS ORDERED: CARBOHYDRATES FOR HYPOGLYCEMIA PO PRN (03:44)
[2023-12-20] MEDS ORDERED: PHARMACY GLYCEMIC MGMT CONSULT PRN (03:44)
--- NOTE | 2023-12-20 04:08 | CT Scan Report ---
Exam(s): CT ABDOMEN + PELVIS With Contrast IV Amt: 118 MLOPTIRAY 320 EXAM: CT Abdomen and Pelvis With Intravenous Contrast CLINICAL HISTORY: Reason for exam: UTI, question of renal infarcts 11/17/23. TECHNIQUE: Axial computed tomography images of the abdomen and pelvis with intravenous contrast. CTDI is 28.14 mGy and DLP is 1471.68 mGy-cm. Automated exposure control was utilized for the study. A dose lowering technique was utilized adhering to the principles of ALARA. CONTRAST: Patient received 118 MLOPTIRAY 320 of IV contrast COMPARISON: No relevant prior studies available. FINDINGS: Lung bases: Dependent airspace consolidations, consistent with multilobar pneumonia. Small bilateral pleural effusions. ABDOMEN: Liver: Unremarkable. No mass. Gallbladder and bile ducts: Unremarkable. No calcified stones. No ductal dilation. Pancreas: Unremarkable. No mass. No ductal dilation. Spleen: Unremarkable. No splenomegaly. Adrenals: Unremarkable. No mass. Kidneys and ureters: Patchy nephrogram of the LEFT kidney, consistent with bowel nephritis. No hydronephrosis. Stomach and bowel: Unremarkable. No obstruction. No mucosal thickening. PELVIS: Appendix: No findings to suggest acute appendicitis. Bladder: Unremarkable. No mass. Reproductive: Unremarkable as visualized. ABDOMEN and PELVIS: Intraperitoneal space: Unremarkable. No free air. No significant fluid collection. Bones/joints: No acute fracture. No dislocation. Soft tissues: Unremarkable. Vasculature: Unremarkable. No abdominal aortic aneurysm. Lymph nodes: Unremarkable. No enlarged lymph nodes. IMPRESSION: 1. Dependent airspace consolidations, consistent with multilobar pneumonia. Small bilateral pleural effusions. 2. Patchy nephrogram of the LEFT kidney, consistent with bowel nephritis. Electronically signed by: Jorge Rosenbaum MD 12/20/23 04:07 AM
[2023-12-20] MEDS: PIPERACILLIN/TAZOBACTAM 4.5 GM/100 ML BAG IV ONE (04:23)
[2023-12-20] MEDS: PANTOprazole 40 MG in SYRINGE 0 ML IV ONE (04:23)
--- NOTE | 2023-12-20 06:44 | Electrocardiogram Report ---
Test Reason : Blood Pressure : / mmHG Vent. Rate : 107 BPM Atrial Rate : 107 BPM P-R Int : 142 ms QRS Dur : 080 ms QT Int : 310 ms P-R-T Axes : 034 024 025 degrees QTc Int : 413 ms Sinus tachycardia Cannot rule out Anterior infarct , age undetermined Abnormal ECG When compared with ECG of 09-SEP-2009 17:26, No significant change was found Confirmed by Justin Bose ([id number]) on 12/20/2023 6:44:33 AM Referred By: Confirmed By:Justin Bose
[2023-12-20] MEDS ORDERED: VANCOMYCIN CONSULT ACTIVE PRN (06:52)
[2023-12-20] MEDS ORDERED: VANCOMYCIN HCL 2,750 MG in SODIUM CHLORIDE 0.9% 500 ML IV ONE (06:52)
[2023-12-20] MEDS: MAGNESIUM SULFATE / D5W 1 GM/100 ML BAG IV ONE (07:35)
[2023-12-20] MEDS: VANCOMYCIN HCL 2,000 MG in SODIUM CHLORIDE 0.9% 500 ML IV ONE (07:36)
--- NOTE | 2023-12-20 07:43 | Hospitalist Progress Note ---
Date of Service December 20, 2023 Assessment & Plan (1) Sepsis due to pneumonia: (2) Sepsis due to urinary tract infection: (3) Pyelonephritis: (4) Acute hypokalemia: (5) Diabetes type 1, uncontrolled: (6) Hyperglycemia due to type 1 diabetes mellitus: Plan Sepsis, multi lobar pneumonia, Asx bacteriuria: Pt met SIRS criteria at time of admission, pulmonary vs urinary source CT angio negative for PE, +bilateral opacities UA suggestive of infectious process, CT A/P patchy nephrogram of left kidney, consistent with pyelonephritis - patient asymptomatic - however, antibiotics should address both processes WBC 17-->15 Most likely does not require MRSA or pseudomonas coverage - will discontinue Vanc and Zosyn Transition to Ceftriaxone Repeat AM labs T1DM: Pharmacy glycemic consult Poor controlled DM likely contributing to recurrent infectious processes Diet: CC VTE ppx: Lovenox Admission and Anticipated Discharge Date Admission Date: December 20, 2023 Supervising Physician Co-Signing Physician Notes I personally examined the patient and verified all strauss points of history and exam, discussed case, and agree with decision making with Dr Horne cough, fatigue, f/c/s, sob. no flank pain no dysuria. no symptoms reminiscent of pyelo last month vitals noted fatigued but nad heent nc at mmm breathing unlabored no accessory muscles good effort skin no rashes no pallor or icterus CAP w sepsis present on admission - improving. doubt pyelo given lack of symptoms, although treatment for pneumonia will cover regardless. sepsis seems to be improving. likely cause of repeated infections is uncontrolled DM uncontrolled DM - working on education. suspect she would do well w CGM, or at least postprandial monitoring to "grade her work" with carb counting (suspect chronic underdosing at meals) DVT proph - lovenox Subjective Pt seen at bedside, notes that she is feeling marginally better this morning. Cough/SOB developed over past 3-4 days, fevers at home with Tmax 102.9 - afebrile overnight. Denies subj. fever/chills. Denies urinary sx/flank pain/N/V - significantly different from previous episode of pyelo last month. Review of Systems Review of Systems: as per HPI Physical Exam Physical Exam: General: Alert and oriented. No acute distress Cardiac: Regular rate and rhythm, no murmurs appreciated Respiratory: Lungs with mildly diminished breath sounds in bilateral lung bases. No wheezes, rales, rhonchi. Abdominal: Soft, non-tender, non-distended. Bowel sounds present. No flank pain. Psych: Mood affect congruence Results & Data Results & Data Vital Signs (Past 12 Hours) Vital Signs Temp Pulse Pulse Resp BP BP Pulse Ox 12/20/23 07:20 84 14 98/59 L 92 12/20/23 05:53 86 17 115/76 97 12/20/23 04:33 82 16 101/82 96 12/20/23 04:32 85 L 12/20/23 03:43 88 12/20/23 03:37 37.1 C 88 18 102/75 96 12/20/23 00:50 100 H 16 123/70 92 12/19/23 21:37 37.3 C 113 H 20 172/88 H 92 O2 Del Method O2 Flow Rate 12/20/23 07:20 Room Air 12/20/23 05:53 Nasal Cannula 2 12/20/23 04:33 Nasal Cannula 2 12/20/23 04:32 Room Air 12/20/23 03:43 12/20/23 03:37 Nasal Cannula 2 12/20/23 00:50 Room Air 12/19/23 21:37 Room Air Resident Activity Tracking Resident Involvement: Resident Care Provided Care Provided: Adult Hospital Medicine
--- NOTE | 2023-12-20 07:58 | XRay Report ---
XR chest 2V PA/lateral CLINICAL HISTORY: Cough, SOB, fever TECHNIQUE: 2 views of the chest were obtained. Comparison: None available at the time of this dictation. FINDINGS: No lines and tubes are seen. The cardiomediastinal silhouette is normal. Faint bibasilar airspace opa cities are seen. Trace bilateral pleural effusions. IMPRESSION: Trace bilateral pleural effusions. Bibasilar faint airspace opacities may represent atelectasis, pneu monia, and/or aspiration. ACT 112: Negative or not required by law. Electronically signed by: Jack Vega M.D. 12/20/2023 7:57 AM
[2023-12-20] MEDS: CYANOCOBALAMIN (B-12) 500 MCG TABLET PO SCH (08:19)
[2023-12-20] MEDS: CHOLECALCIFEROL 125 MCG (5,000 UNITS) TAB PO SCH (08:19)
[2023-12-20] MEDS: ASCORBIC ACID 500 MG TAB PO SCH (08:19)
[2023-12-20] MEDS: INSULIN ASPART PER UNIT CHARGE SC SCH (08:57)
[2023-12-20] MEDS: LANTUS PER UNIT CHARGE SC SCH ×2 (08:57→21:07)
--- NOTE | 2023-12-20 10:36 | Pharmacy Report ---
Pharmacy Glycemic Short Note 2 - Date of Service December 20, 2023 - Glycemic Short BSG Results (Last 24 hours): 12/19/23 12/20/23 12/20/23 21:55 02:48 07:33 Glucose 242 H POC Glucose 249 H 300 H OUTPATIENT ANTIDIABETIC REGIMEN: * Lantus 40 units SQ HS * Humalog TID (50 units/day) * HbA1C = 10.1% on 08/24/23 and 10.5% on 12/20/23 ASSESSMENT: * 38 y/o F admitted with Sepsis and hypoxia. She has history of Type 1 diabetes managed on basal and bolus insulins at home ~ 90 units/day total per recent notes from Endocrinology. * Blood sugars were elevated above 200 mg/dl on admission. Fasting BSG today AM was 300 mg/dl. Per med reconciliation, patient took her basal insulin 40 units last night. * Basal Lantus 25 units given this morning. Novolog started this morning based on stress of 2. * Expect BSGs to trend down this evening. HS basal continued but on a scale based on BSGs. PLAN FOR INPATIENT GLYCEMIC CONTROL: * Basal insulin * Lantus 25 units SQ today AM * Lantus 20/25/30 units scale SQ HS based on BSG * Bolus insulin * NovoLog per scale ACHS or Q6hrs while NPO. Added 00,04 checks overnight. * Goal Range: Low 110 mg/dL - High 140 mg/dL * Correction Factor: 20 mg/dL/unit * Nutritional / Prandial insulin per carb ratio of 1 unit per 6 grams CHO consumed
[2023-12-20] MEDS: PIPERACILLIN/TAZOBACTAM 4.5 GM in DEXTROSE 5% MINI-B 100 ML IV SCH (10:37)
[2023-12-20] MEDS: PANTOprazole 40 MG in SYRINGE 0 ML IV SCH (10:59)
[2023-12-20 11:04] LABS: Basophils # (auto) 0.05 K/uL (0.00-0.20); Basophils % (auto) 0.3 %; Eosinophils # (auto) 0.08 K/uL (0.00-0.50); Eosinophils % (auto) 0.5 %; Hematocrit (blood only) 29.2 % (37.0-47.0); Hemoglobin 9.4 g/dl (12.0-16.0); Immature Granulocytes # (auto) 0.19 K/uL (0.01-0.20); Immature Granulocytes % (auto) 1.2 %; Lymphocytes # (auto) 1.13 K/uL (1.20-3.40); Lymphocytes % (auto) 7.3 %; Mean Corpuscular Hemoglobin 27.2 pg (25.0-34.0); Mean Corpuscular Hgb Conc 32.2 g/dL (32.0-36.0); Mean Corpuscular Volume 84.4 fL (80.0-100.0); Mean Platelet Volume 11.3 fL (9.4-12.4); Monocytes # (auto) 1.06 K/uL (0.11-0.59); Monocytes % (auto) 6.9 %; Neutrophils # (auto) 12.93 K/uL (1.40-6.50); Neutrophils % (auto) 83.8 %; Platelet Count 201 K/uL (130-400); RDW Coefficient of Variation 15.1 % (11.5-14.5); RDW Standard Deviation 46.3 fL (36.4-46.3); Red Blood Count 3.46 M/uL (4.20-5.40); White Blood Count 15.44 K/ul (4.8-10.8)
[2023-12-20 11:28] LABS: Albumin Globulin Ratio 0.8 (0.9-2); Albumin Level 2.6 gm/dl (3.4-5.0); Bilirubin,Total 1.1 mg/dl (0.2-1.0); Calcium 7.8 mg/dl (8.6-10.3); Creatinine Clr Calc Pharmacy 122.3 ml/min; Est GFR (African American) 117.2 ml/min; Est GFR (Non-African American) 101.1 ml/min; Globulin 3.1 gm/dl (2.5-4.0); Potassium 3.7 mmol/L (3.5-5.1); Total Protein 5.7 gm/dl (6.0-8.3)
[2023-12-20] MEDS: AZITHROMYCIN 500 MG in DEXTROSE 5% 250 ML IV SCH (11:28)
[2023-12-20 12:01] LABS: Estimated Average Glucose 255 mg/dl; Hemoglobin A1C 10.5 % (4.5-5.6)
[2023-12-20] MEDS: ACETAMINOPHEN 325 MG TAB PO PRN (13:56)
[2023-12-20] MEDS: cefTRIAXone SODIUM 2,000 MG/50 ML BAG IV SCH (15:43)
--- NOTE | 2023-12-20 19:42 | Billing Data ---
Date of Service December 20, 2023 Coding Level of Care Code 01070 SUB INP/OBS CARE MIN
[2023-12-20] MEDS: ATORVASTATIN 40 MG TAB PO SCH (20:57)
[2023-12-21] MEDS: INSULIN ASPART PER UNIT CHARGE SC SCH (00:06)
[2023-12-21 06:31] LABS: Hematocrit (blood only) 27.1 % (37.0-47.0); Mean Corpuscular Hemoglobin 27.9 pg (25.0-34.0); Mean Corpuscular Hgb Conc 33.2 g/dL (32.0-36.0); Mean Corpuscular Volume 83.9 fL (80.0-100.0); Mean Platelet Volume 11.7 fL (9.4-12.4); Platelet Count 229 K/uL (130-400); RDW Coefficient of Variation 15.1 % (11.5-14.5); RDW Standard Deviation 46.7 fL (36.4-46.3); Red Blood Count 3.23 M/uL (4.20-5.40); White Blood Count 14.33 K/ul (4.8-10.8)
[2023-12-21 06:50] LABS: Albumin Globulin Ratio 0.8 (0.9-2); Albumin Level 2.5 gm/dl (3.4-5.0); BUN Creatinine Ratio 12.3 (10-20); Bilirubin,Total 0.7 mg/dl (0.2-1.0); Calcium 7.6 mg/dl (8.6-10.3); Creatinine Clr Calc Pharmacy 141.2 ml/min; Est GFR (African American) 130.5 ml/min; Est GFR (Non-African American) 112.6 ml/min; Magnesium 2.1 mg/dl (1.7-2.4); Potassium 3.5 mmol/L (3.5-5.1); Total Protein 5.5 gm/dl (6.0-8.3)
--- NOTE | 2023-12-21 07:58 | Hospitalist Progress Note ---
Date of Service December 21, 2023 Assessment & Plan (1) Sepsis due to pneumonia: (2) Sepsis due to urinary tract infection: (3) Pyelonephritis: (4) Acute hypokalemia: (5) Diabetes type 1, uncontrolled: (6) Hyperglycemia due to type 1 diabetes mellitus: Plan Sepsis, multi lobar pneumonia, Asx bacteriuria: Pt met SIRS criteria at time of admission, pulmonary vs urinary source CT angio negative for PE, +bilateral opacities UA suggestive of infectious process, CT A/P patchy nephrogram of left kidney, consistent with pyelonephritis - patient asymptomatic - however, antibiotics should address both processes WBC 15-->14 Continue Ceftriaxone, anticipate transition to PO abx and likely discharge tomorrow Repeat AM labs T1DM, Hyperglycemia: Pharmacy glycemic consult Poor controlled DM likely contributing to recurrent infectious processes, will continue working on diabetic education while hospitalized. Diet: CC VTE ppx: Lovenox Admission and Anticipated Discharge Date Admission Date: December 20, 2023 Subjective Pt seen at bedside, notes that she is feeling overall better this morning. Cough/SOB ongoing - afebrile overnight. Denies subj. fever/chills. Denies urinary sx/flank pain/N/V. Review of Systems Review of Systems: as per HPI Physical Exam Physical Exam: General: Alert and oriented. No acute distress Cardiac: Regular rate and rhythm, no murmurs appreciated Respiratory: Lungs with mildly diminished breath sounds in bilateral lung bases. No wheezes, rales, rhonchi. Abdominal: Soft, non-tender, non-distended. Bowel sounds present. No flank pain. Psych: Mood affect congruence Results & Data Results & Data Vital Signs (Past 12 Hours) Vital Signs Temp Pulse Pulse Resp BP Pulse Ox O2 Del Method 12/21/23 07:41 36.8 C 84 16 104/69 96 Nasal Cannula 12/21/23 02:44 37.5 C 95 H 20 137/84 90 Room Air 12/20/23 23:00 37.2 C 94 H 20 111/72 92 Room Air 12/20/23 21:58 91 H O2 Flow Rate 12/21/23 07:41 2 12/21/23 02:44 12/20/23 23:00 12/20/23 21:58 Resident Activity Tracking Resident Involvement: Resident Care Provided Care Provided: Adult Hospital Medicine
[2023-12-21] MEDS: ENOXAPARIN INJ 40 MG/0.4 ML SYR SQ SCH (09:03)
--- NOTE | 2023-12-21 13:25 | Pharmacy Report ---
Pharmacy Glycemic Short Note 2 - Date of Service December 21, 2023 - Glycemic Short BSG Results (Last 24 hours): 12/20/23 12/20/23 12/20/23 17:50 20:18 23:59 Glucose POC Glucose 247 H 235 H 193 H 12/21/23 12/21/23 12/21/23 05:38 05:50 07:40 Glucose 153 H POC Glucose 163 H 148 H 12/21/23 12:01 Glucose POC Glucose 219 H OUTPATIENT ANTIDIABETIC REGIMEN: * Lantus 40 units SQ HS * Humalog TID (50 units/day) * HbA1C = 10.1% on 08/24/23 and 10.5% on 12/20/23 ASSESSMENT: 12/21/23 * Blood sugars elevated yesterday, but did trend down nicely overnight * Received 100 units of insulin yesterday (55 units of basal and 45 units of bolus) * Will change basal insulin to once daily at bedtime to correlate with patient's outpatient * Only minor adjustments to glycemic regimen today 12/20/23: * 38 y/o F admitted with Sepsis and hypoxia. She has history of Type 1 diabetes managed on basal and bolus insulins at home ~ 90 units/day total per recent notes from Endocrinology. * Blood sugars were elevated above 200 mg/dl on admission. Fasting BSG today AM was 300 mg/dl. Per med reconciliation, patient took her basal insulin 40 units last night. * Basal Lantus 25 units given this morning. Novolog started this morning based on stress of 2. * Expect BSGs to trend down this evening. HS basal continued but on a scale based on BSGs. PLAN FOR INPATIENT GLYCEMIC CONTROL: * Basal insulin * Lantus 40 units SC HS * Bolus insulin * NovoLog per scale ACHS or Q6hrs while NPO. * Goal Range: Low 110 mg/dL - High 140 mg/dL * Correction Factor: 30 mg/dL/unit * Nutritional / Prandial insulin per carb ratio of 1 unit per 8 grams CHO consumed
--- NOTE | 2023-12-21 16:01 | Discharge Summary ---
Date of Service December 21, 2023 Admission HPI Per Admitting Provider The patient is a 38-year-old female with a past medical history including diabetes mellitus type 1 with variable control, background diabetic retinopathy, hyperlipidemia, B12 deficiency, and obesity. She presents to the emergency department with symptoms as noted above. She reports that she is exhausted, having difficulty breathing, is experiencing urinary frequency, urgency and dysuria, and in general feels terrible. Admission Exam Per Admitting Provider The patient is awake, but lethargic, well developed and well nourished, normocephalic and atraumatic, lying in bed and in no acute distress. HEENT--PERRL, EOMI, mucous membranes and oropharynx mildly dry. Neck--supple. No JVD. No bruits. Thyroid normal, trachea midline, no adenopat hy. Heart--normal S1 and S2. No murmurs, rubs or gallops. Lungs--clear bilaterally, no respiratory distress, no accessory muscle use. Abdomen--normal bowel sounds and soft. Nontender. Nondistended, no hernias or masses, no organomegaly. Extremities-- No edema. Dermatologic--normal skin turgor, normal color, no abnormal lymph nodes, no rash. Neurologic--cranial nerves II through XII grossly intact. Rheumatologic--normal range of motion. Psychiatric--normal affect. Principal Diagnosis pneumonia Discharge Exam General: Alert and oriented. No acute distress Cardiac: Regular rate and rhythm, no murmurs appreciated Respiratory: Lungs with mildly diminished breath sounds in bilateral lung bases. No wheezes, rales, rhonchi. Abdominal: Soft, non-tender, non-distended. Bowel sounds present. No flank pain. Psych: Mood affect congruence Discharge Data Allergies Allergy/AdvReac Type Severity Reaction Status Date / Time No Known Allergies Allergy Verified 12/19/23 23:04 Consultations 12/20/23 02:05 ED Decision to Admit Stat Ordered Studies Chest X-Ray 12/19/23 23:11 XR chest 2V PA/lateral CLINICAL HISTORY: Cough, SOB, fever TECHNIQUE: 2 views of the chest were obtained. Comparison: None available at the time of this dictation. FINDINGS: No lines and tubes are seen. The cardiomediastinal silhouette is normal. Faint bibasilar airspace opacities are seen. Trace bilateral pleural effusions. IMPRESSION: Trace bilateral pleural effusions. Bibasilar faint airspace opacities may represent atelectasis, pneumonia, and/or aspiration. ACT 112: Negative or not required by law. Electronically signed by: Jack Vega M.D. 12/20/2023 7:57 AM Abdomen/Pelvis CT 12/20/23 02:31 Exam(s): CT ABDOMEN + PELVIS With Contrast IV Amt: 118 MLOPTIRAY 320 EXAM: CT Abdomen and Pelvis With Intravenous Contrast CLINICAL HISTORY: Reason for exam: UTI, question of renal infarcts 11/17/23. TECHNIQUE: Axial computed tomography images of the abdomen and pelvis with intravenous contrast. CTDI is 28.14 mGy and DLP is 1471.68 mGy-cm. Automated exposure control was utilized for the study. A dose lowering technique was utilized adhering to the principles of ALARA. CONTRAST: Patient received 118 MLOPTIRAY 320 of IV contrast COMPARISON: No relevant prior studies available. FINDINGS: Lung bases: Dependent airspace consolidations, consistent with multilobar pneumonia. Small bilateral pleural effusions. ABDOMEN: Liver: Unremarkable. No mass. Gallbladder and bile ducts: Unremarkable. No calcified stones. No ductal dilation. Pancreas: Unremarkable. No mass. No ductal dilation. Spleen: Unremarkable. No splenomegaly. Adrenals: Unremarkable. No mass. Kidneys and ureters: Patchy nephrogram of the LEFT kidney, consistent with bowel nephritis. No hydronephrosis. Stomach and bowel: Unremarkable. No obstruction. No mucosal thickening. PELVIS: Appendix: No findings to suggest acute appendicitis. Bladder: Unremarkable. No mass. Reproductive: Unremarkable as visualized. ABDOMEN and PELVIS: Intraperitoneal space: Unremarkable. No free air. No significant fluid collection. Bones/joints: No acute fracture. No dislocation. Soft tissues: Unremarkable. Vasculature: Unremarkable. No abdominal aortic aneurysm. Lymph nodes: Unremarkable. No enlarged lymph nodes. IMPRESSION: 1. Dependent airspace consolidations, consistent with multilobar pneumonia. Small bilateral pleural effusions. 2. Patchy nephrogram of the LEFT kidney, consistent with bowel nephritis. Electronically signed by: Jorge Rosenbaum MD 12/20/23 04:07 AM Chest CTA 12/20/23 02:45 Exam(s): CTA CHEST IV Amt: 118 ML OPTIRAY 320 EXAM: CT Angiography Chest With Intravenous Contrast CLINICAL HISTORY: Reason for exam: PE. TECHNIQUE: Axial computed tomographic angiography images of the chest with intravenous contrast. CTDI is 28.14 mGy and DLP is 711.81 mGy-cm. Automated exposure control was utilized for the study. A dose lowering technique was utilized adhering to the principles of ALARA. MIP reconstructed images were created and reviewed. COMPARISON: No relevant prior studies available. FINDINGS: Pulmonary arteries: Unremarkable. No acute pulmonary embolism. Aorta: No acute findings. No thoracic aortic aneurysm. Lungs: Dependent airspace consolidations, concerning for bilateral aspiration pneumonia. Small bilateral parapneumonic effusions. Pleural space: Unremarkable. No significant effusion. No pneumothorax. Heart: Unremarkable. No cardiomegaly. No significant pericardial effusion. No evidence of RV dysfunction. Bones/joints: No acute fracture. No dislocation. Soft tissues: Unremarkable. Lymph nodes: Unremarkable. No enlarged lymph nodes. Intraperitoneal space: Mild abdominal ascites. IMPRESSION: 1. No acute pulmonary embolism. 2. Dependent airspace consolidations, concerning for bilateral aspiration pneumonia. Small bilateral parapneumonic effusions. 3. Mild abdominal ascites. Electronically signed by: Jorge Rosenbaum MD 12/20/23 03:41 AM Diabetes Follow up Diabetes Follow-up Needed for HgbA1c >9% Hospital Course (1) Sepsis due to pneumonia: (2) Sepsis due to urinary tract infection: (3) Pyelonephritis: (4) Acute hypokalemia: (5) Diabetes type 1, uncontrolled: (6) Hyperglycemia due to type 1 diabetes mellitus: Plan Sepsis, multi lobar pneumonia, Asx bacteriuria: Pt met SIRS criteria at time of admission, pulmonary vs urinary source CT angio negative for PE, +bilateral opacities suggestive of multilobar pneumonia UA suggestive of infectious process, CT A/P patchy nephrogram of left kidney, consistent with pyelonephritis - patient asymptomatic, managing as asymptomatic bacteriuria Empirically started on Vanc + Zosyn --> transitioned to IV Ceftriaxone --> discharged with PO Augmentin x5 days T1DM, Hyperglycemia: Pharmacy glycemic consult Poor controlled DM likely contributing to recurrent infectious processes, will recommend working on diabetic education, consider CGM. Total Time Total Time Spent Total Time Spent (In Minutes): <30 Discharge Plan Discharge Items Patient Disposition: Home - Self-Care Reason For Visit: SEPSIS, UTI, HYPOXIA Discharge Diagnosis: pneumonia Activity: Per Instructions section Non-emergency contact: Primary Care Provider Call non-emergency contact if: your symptoms worsen and your temperature is above 101.5 Follow-up/Referrals: Ignacio Nielsen MD [Primary Care Provider] - Harshad Horne, [Resident] - Diet: Carb Count or DM1 Addtl Attending Provider Instructions: pneumonia -Initially there was concern about both pneumonia and a recurrent kidney infection, your absolute lack of urinary symptoms/flank pain and the very clear presence of respiratory symptoms made it clear that you were sick this time with a pneumonia. Your urine culture is showing bacteria, but this is almost certainly what is called asymptomatic bacteriuria (the presence of bacteria in the urinary tract without any active infection)and we expect your course getting better to fit with the pneumonia (See below under "loose ends" for more) - we will finish out a course of antibiotics with Augmentin1 pill in the morning/1 pill at night for another week (your next dose should be tomorrow morning, 12/21) - Augmentin usually sits pretty well, if you find that it upsets her stomach take it with food. - Unfortunately it usually takes a while for a pneumonia to get better. It would not surprise me if you still have aches and a bit of malaise for the next several days, probably still a cough and a decent amount of junk coming up with the cough for several days. That should slowly fade over the next few days to a week. The cough might persist for months. The biggest thing will be a pervasive fatigue. Unfortunately that might take until Labor Day to truly get better. - To keep your sanity, I would not look for day to day progress, but rather ev aluate if you are getting better in 3-4 days at a time. It is likely that you will be having improvement each day, but it is also likely to be so incremental and subtle that it will be impossible to tell. - While improvement will likely come slowly, there should be no worseningif you have true worsening/more shortness of breath/recurrence of the fever (past tonight, when it still might be not surprising to spike a bit of a temp) we would want you checked out that day. Similarly, if it is clear that you are not getting better (you are looking back 3-4 days, or even a week and can clearly feel like you are no better now than you were a week ago) then it would be worth getting checked out as well. diabetes - as we discussed, the most likely culprit for why you have now had 2 fairly serious infections in [id number] months really relates to the diabetes and fairly poor control - in this context, it is important to remember that high sugars suppress your immune system. While it is a little bit of an arbitrary "line in the sand" it is reasonable to assume that anytime your sugar is above about 200, you are suppressing your immune system some. -your current A1c is 10.5%, unfortunately this correlates with "any given moment glucose" of about 255 - even more important for your long-term health than high sugar suppressing your immune system, the main concern with uncontrolled diabetes is "high sugars clog arteries"meaning that the higher your sugars run, and the longer they run high, the more you are clogging up blood vessels that you cannot get back - the retinopathy you already have to deal with generally is due to high sugars clogging the arteries to the back of your eyes. The main things that we worry about with diabetes, however, are more common "clogged artery complications" such as heart attacks and strokes, and other "famous diabetes clogged arteries complications" such as neuropathy (where high sugars clog arteries to the nerves in your legs and feet) and kidney disease (where high sugars clog the arteries in your kidneys) - the goal here is to keep you out of harm's way with all of this - generally what I find when a diabetic is struggling with sugar control, it is most often that they are not giving themselves enough insulin to match the carbohydrates that they are eating. When you carb count, the goal would be to have enough insulin to process the carbs that you have eaten, getting them out of your bloodstream and into your muscles. This generally would correlate with a sugar after you eat of about 478619 (as we discussed, true normal is probably more like 34734, but 352617 is easier to remember, and "thighs margin of error" against creating lots of low sugars that are less dangerous than highs, but acutely feel more miserable) - when we eat, or food usually reaches peak absorption about an hour after we are done eating. Your mealtime insulin kicks in about 15 minutes after you injected, reaches a peak of activity about 90 minutes after you injected, and is done working 3-4 hours after you inject it. - Because of this, a good time to "grade your work" on checking if the insulin you gave match the carbohydrates you ate would be to check your sugars about 2 hours after eating. - When you start to see sugars after you eat being higher than the range of about 972189, that we will let you know that you are "underdosing" for what you have eatenand you can either revisit weighing and measuring the food and recheck in your mouth, or learning by "educated trial and error" about how much insulin it takes for different meal types to get your sugar into the goal range 2 hours later. - A continuous glucose monitor obviously makes life far easier with thisbecause it is far less cumbersome to follow your sugars with a CGM then to have to do fingersticksso getting 1 of those will be a big benefit; in the meantime, I would advocate for you to check sugars after you eat instead of before (especially if you know you are eating) so that you can start to get a feel of matching the insulin you take with the carbohydrates you eat better. - From a big picture perspective, keep in mind that we generally like to have about 50% of our total 24-hour insulin units in our basal (Lantus) insulin, and the other 50% of our total 24-hour insulin units spread out across meals (log insulin)because of this, if you find that you are needing to use a lot more at each meal than you were before, and that 5050 balance starts to really get out of line, that is where your curtain roller assembler can help with guidance on raising the Lantus dose (as we discussed I tend to view our job as your doctors to be your women's basketball coach/guide/and accountability/troubleshooting as it relates to mealtime insulin and making sure that you are matching up the carbohydrates you eat with the insulin you take, and generally being the one who "sets the dose" for your long-acting/basal/Lantus insulin - if you really get on top of this, which I believe you will, there is really no reason that your A1c could not be 7% by [place]. loose ends -As discussed above, your urine culture is really inconsistent with infection, given that about 10% of women will have a positive urine culture on any given day. That said, the same Augmentin that we are using to treat the pneumonia generally also kills the same types of bacteria that we are seeing in the urine so it is almost a "academic point" anyway - your left kidney did light up a little bit irregularly on CT scan this time, it was the right kidney when you had the kidney infection. This was really non specific, and really I did not even notice it when I looked at your films if the radiologist had not pointed it out firstI mostly mention this because it is a loose ends that we will want your family doc to keep an eye on (probably as simple as repeating kidney imaging with an ultrasound in 2-3 months) - we will want her to have follow-up lab work next week (CBC, basic metabolic panel) - we will get you set up with Dr. Horne at [facility] ([address] [place], ) because our endocrinology team is excellent at what they do, but we definitely will benefit you more by having a doctor looking after "the whole you" as well Pending Studies at Discharge: Yes Studies:: UCx sensitivites Stand-Alone Forms: My [facility] FoxyP2, Work/School Release, Smoking Cessation Medications and DC Order Prescriptions: New amoxicillin-pot clavulanate 875-125 mg tablet 1 tab PO BID Qty: 14 0RF Continued atorvastatin 40 mg tablet 40 mg PO HS Qty: 30 5RF insulin glargine [Lantus Solostar U-100 Insulin] 100 unit/mL (3 mL) insulin pen 40 unit subcut QPM Qty: 36 2RF (DME) Dexcom G7 Sensor Device See Rx Instructions .Route Qty: 3 11RF Rx Instructions: change sensor every 10 days (DME) pen needle, diabetic [BD Ultra-Fine Mini Pen Needle] 31 gauge x 3/16" needle See Rx Instructions .ROUTE .MEDSUPPLY Qty: 400 3RF Rx Instructions: Inject insulin four times daily (DME) ReliOn Prime Test Strips strip See Dose Instructions .ROUTE .MEDSUPPLY Qty: 10 Rx Instructions: Test blood sugars 3 time a day ascorbic acid (vitamin C) 500 mg tablet 500 mg PO DAILY Rx Instructions: PER PT "NOT REGULARLY" cyanocobalamin (vitamin B-12) 500 mcg tablet 500 mcg PO DAILY Rx Instructions: PER PT "NOT REGULARLY" (DME) Omnipod 5 G6 Intro Kit (Gen 5) Cartridge See Rx Instructions .Route Qty: 1 0RF Rx Instructions: change pods every 2 days (DME) Omnipod 5 G6 Pods (Gen 5) Cartridge See Rx Instructions .Route Qty: 15 11RF Rx Instructions: change pods every 2 days insulin lispro [Humalog U-100 Insulin] 100 unit/mL solution 80 unit continuous subcutaneous infusion DAILY Qty: 30 2RF Rx Instructions: for use in insulin pump; up to 85 units daily insulin lispro [Humalog KwikPen Insulin] 100 unit/mL insulin pen 0 - 50 unit SQ TID cholecalciferol (vitamin D3) [Vitamin D3] 125 mcg (5,000 unit) Tablet 125 mcg PO DAILY Discharge Orders: Discharge Order (Routine); Ordered 12/21/23 Ordered By: Garry Stapleton Admission Data Admit Date/Time: 12/20/23 03:01 Attending Provider: Garry Stapleton Admit Provider: Hansel Coburn Primary Care Provider: Ignacio Nielsen Other Providers: Hansel Coburn Other Interventions: Discharge Summary Assessment (RN) Last Done: 12/21/23 16:31 Supervising Physician Co-Signing Physician Notes I personally examined the patient and verified all strauss points of history and exam, discussed case, and agree with decision making with Dr Horne feeling better walking around off O2 no GASPAR would like to go home vitals noted fatigued but nad heent nc at mmm breathing unlabored no accessory muscles good effort skin no rashes no pallor or icterus CAP w sepsis present on admission - improving. doubt pyelo given lack of symptoms, although treatment for pneumonia will cover regardless. sepsis resolved. safe/stable for home. augmentin uncontrolled DM - working on education. suspect she would do well w CGM, or at least postprandial monitoring to "grade her work" with carb counting (suspect chronic underdosing at meals) abnormal kidney appearance on CT - nonspecific - doubtful clinical significance this time given lack of symptoms. renal US as outpt ~2-3months for completeness DVT proph - lovenox Resident Activity Tracking Resident Involvement: Resident Care Provided Care Provided: Adult Hospital Medicine
--- NOTE | 2023-12-21 16:57 | Billing Data ---
Date of Service December 21, 2023 Coding Level of Care Code 18189 IN/OBS DISCH 30 MIN/LESS
[2023-12-21] MEDS ORDERED: LANTUS PER UNIT CHARGE SC SCH (21:00)
== END 2023-12-21 17:46 | disposition home or self-care (01) | DRG 871 ==
LOC: ED 21:34 → EDINP 12-20 03:01 → SUATTDRO 12-20 03:01 → 4W 12-20 03:45